=== PATIENT | female | born 1975 | race Two or more races ===

== ENCOUNTER → 2024-09-16 | Outpatient (CLI) | payer BC, SELFPAY ==
--- NOTE | 2024-09-16 09:27 | XR_ITS ---
Examination: Retroperitoneal ultrasound, complete Technique: Multiple high resolution grayscale images of the retroperitoneum obtained, including kidneys and bladder. Exam date and time:September 16, 2024 0935 hours INDICATIONS: Left flank pain beginning 3 days ago, history kidney stones one year ago FINDINGS: Right kidney 10.8 x 5.7 x 5.0 cm cortex 2.6 cm Left kidney 11.4 x 5.7 x 5.7 cm cortex 2.0 cm Minimal bilateral renal parenchymal scar formation No hydronephrosis or renal calculi No bladder mass or bladder calculi Bladder prevoid volume 112 cc postvoid volume 0 cc IMPRESSION: Mild bilateral renal parenchymal scar formation, no hydronephrosis or renal calculi
== END | disposition home or self-care (01) ==
PROVIDERS: PCP Nurse Practitioner Family; Referring Provider Nurse Practitioner Family; Visit Provider Nurse Practitioner Family
DX: N20.0 Calculus of kidney (principal)
CPT/HCPCS: 76770